=== PATIENT | male | born 2000 | race Caucasian/White ===

== ENCOUNTER 2024-10-21 09:55 | Day surgery (SDC) | payer OTHER ==
[2024-10-16 14:45] VITALS: BMI 33.9
[2024-10-21] MEDS ORDERED: AFRIN NASAL MIST 15 ML BOT ONE ×2 (10:23→10:53)
[2024-10-21] MEDS ORDERED: Oxymetazoline HCl 0.05% ( 15 ML ) ONE (10:30)
[2024-10-21] MEDS ORDERED: PROPOFOL 20 ML ONE (10:49)
[2024-10-21] MEDS ORDERED: Lidocaine 1% PF 5 ML VIAL ONE (10:50)
[2024-10-21] MEDS ORDERED: Rocuronium Bromide 10 MG/ML (10ML VIAL) ONE (10:50)
[2024-10-21] MEDS ORDERED: Lidocaine 1% w/Epinephrine 1:200K 30 ML VIAL ONE (10:53)
[2024-10-21] MEDS ORDERED: Ondansetron PF 4 MG/2 ML Vial ONE (10:54)
[2024-10-21] MEDS ORDERED: fentaNYL 50 mcg/mL 1 mL Vial ONE ×2 (11:25→12:54)
[2024-10-21] MEDS ORDERED: Dexamethasone 20 MG/5 ML VIAL ONE (11:48)
[2024-10-21] MEDS ORDERED: Mupirocin 2% Ointment 22 GM Tube ONE (12:05)
[2024-10-21] MEDS ORDERED: SUGAMMADEX SODIUM 200 MG/2 ML VIAL ONE (12:22)
[2024-10-21] MEDS ORDERED: Ipratropium/Albuterol 3 ML NEB ONE (13:07)
== END 2024-10-21 14:10 | disposition home or self-care (01) ==
LOC: CSHSDC 09:55
PROVIDERS: ATTEND Otolaryngology Plastic Surgery within the Head & Neck
PROC: 099W8ZZ Drainage of Right Sphenoid Sinus, Via Natural or Artificial Opening Endoscopic (ICD-10-PCS; principal; 2024-10-21)
PROC: 09TV8ZZ Resection of Left Ethmoid Sinus, Via Natural or Artificial Opening Endoscopic (ICD-10-PCS; principal; 2024-10-21)
PROC: 09SM0ZZ Reposition Nasal Septum, Open Approach (ICD-10-PCS; principal; 2024-10-21)
PROC: 09TU8ZZ Resection of Right Ethmoid Sinus, Via Natural or Artificial Opening Endoscopic (ICD-10-PCS; principal; 2024-10-21)
PROC: 099Q8ZZ Drainage of Right Maxillary Sinus, Via Natural or Artificial Opening Endoscopic (ICD-10-PCS; principal; 2024-10-21)
PROC: 099R8ZZ Drainage of Left Maxillary Sinus, Via Natural or Artificial Opening Endoscopic (ICD-10-PCS; principal; 2024-10-21)
PROC: 09TL8ZZ Resection of Nasal Turbinate, Via Natural or Artificial Opening Endoscopic (ICD-10-PCS; principal; 2024-10-21)
PROC: 09BS8ZZ Excision of Right Frontal Sinus, Via Natural or Artificial Opening Endoscopic (ICD-10-PCS; principal; 2024-10-21)
PROC: 09BT8ZZ Excision of Left Frontal Sinus, Via Natural or Artificial Opening Endoscopic (ICD-10-PCS; principal; 2024-10-21)
PROC: 099X8ZZ Drainage of Left Sphenoid Sinus, Via Natural or Artificial Opening Endoscopic (ICD-10-PCS; principal; 2024-10-21)
DX: J34.2 Deviated nasal septum (principal); J32.4 Chronic pansinusitis; J34.3 Hypertrophy of nasal turbinates; J33.0 Polyp of nasal cavity; J45.909 Unspecified asthma, uncomplicated; Z79.899 Other long term (current) drug therapy
CPT/HCPCS: J1100; J2405; J2704; J3010; J7620